=== PATIENT | male | born 2000 | race Two or more races ===

== ENCOUNTER 2021-01-01 21:54 | Emergency (ER) | payer OTHER ==
[2021-01-01 22:06] VITALS: BP 147/81; PULSE 82; TEMP 98.1; BMI 33.2
== END 2021-01-02 01:26 | disposition home or self-care (01) ==
LOC: JER 21:54
DX: M79.651 Pain in right thigh (principal); L02.415 Cutaneous abscess of right lower limb
CPT/HCPCS: 99283-25